=== PATIENT | female | born 1945 | race Caucasian/White ===

== ENCOUNTER 2020-09-14 13:17 | Inpatient (IN) | payer MEDICARE, MEDICAID ==
[~2020-09-14] VITALS: Ht 152.4 cm; Wt 53.2 kg
[~2020-09-14 13:17] MED LIST: COREG; LASIX
[2020-09-14] MEDS ORDERED: SODIUM CHLORIDE 0.9% 1,000 ML IV ONE (13:30)
[2020-09-14 14:17] LABS: HEMATOCRIT. 34.9 % (36.0-48.0); HEMOGLOBIN. 11.3 g/dL (12.0-16.0); MEAN CORPUSCULAR VOLUME 77.6 fL (81.0-99.0); MEAN PLATELET VOLUME 8.8 fl (7.4-10.4); PLATELET 173 x1000/uL (130-400); RED CELL DISTRIBUTION WIDTH 25.6 % (11.6-14.6)
[2020-09-14 14:26] LABS: INR 1.1; PROTHROMBIN TIME 11.3 sec (9.6-11.0)
[2020-09-14 14:31] LABS: CHLORIDE 104 mEq/L (98-107)
[2020-09-14] MEDS ORDERED: NOREPINEPHRINE 8MG/250ML PMX 250 ML IV STA (14:43)
[2020-09-14] MEDS ORDERED: VANCOMYCIN 1 G PREMIX 200 ML IV NR (14:45)
[2020-09-14] MEDS ORDERED: LIDOCAINE HCL 1% 20ML VIAL (Pyxis) INJ ONE (14:45)
[2020-09-14 15:09] LABS: PLATELET ESTIMATE NORMAL
[2020-09-14 15:10] LABS: CLARITY URINE CLEAR (CLEAR); COLOR URINE YELLOW (YELLOW); KETONES URINE TRACE (NEGATIVE); LEUKOCYTE ESTERASE URINE 1+ (NEGATIVE); NITRITE URINE NEGATIVE (NEGATIVE); OCCULT BLOOD URINE NEGATIVE (NEGATIVE); PROTEIN URINE TRACE (NEGATIVE); SPECIFIC GRAVITY URINE 1.022 (1.005-1.030)
[2020-09-14] MEDS ORDERED: NOREPINEPHRINE 8 MG in DEXTROSE 5% WATER 250 ML IV PRN (15:15)
[2020-09-14] MEDS ORDERED: PIPERACILLIN/TAZ 3.375G PREMIX 50 ML IV NR (15:30)
[2020-09-14] MEDS ORDERED: ACETAMINOPHEN 650MG SUPP PR ONE (16:00)
[2020-09-14] MEDS ORDERED: ASPIRIN 300MG SUPP PR ONE (16:00)
[2020-09-14] MEDS ORDERED: ONDANSETRON HCL 4MG/2ML INJ IV PRN (16:45)
[2020-09-14] MEDS ORDERED: PIPERACILLIN/TAZOBACTAM 3.375 G in DEXT 5% WATER 100 ML IV SCH (16:45)
[2020-09-14] MEDS: DEXT 5%/0.45% NACL 1000ML 1,000 ML IV SCH (18:37)
[2020-09-14] MEDS: MIDODRINE HCL 5MG TABLET PO SCH (19:04)
[2020-09-14] MEDS: ENOXAPARIN 40MG/0.4ML SYR SUBCUT SCH (22:00)
[2020-09-14] MEDS: PIPERACILLIN/TAZOBACTAM 3.375 G in DEXT 5% WATER 100 ML IV SCH (22:44)
[2020-09-15 06:50] LABS: HEMATOCRIT. 34.5 % (36.0-48.0); HEMOGLOBIN. 11.1 g/dL (12.0-16.0); MEAN CORPUSCULAR HEMOGLOBIN 24.7 pg (28.0-32.0); MEAN CORPUSCULAR VOLUME 76.9 fL (81.0-99.0); MEAN PLATELET VOLUME 8.6 fl (7.4-10.4); PLATELET 220 x1000/uL (130-400); RED BLOOD CELL COUNT 4.49 mill/uL (4.2-5.4); RED CELL DISTRIBUTION WIDTH 25.6 % (11.6-14.6)
[2020-09-15 06:52] LABS: CHLORIDE 108 mEq/L (98-107)
[2020-09-15] MEDS: PIPERACILLIN/TAZOBACTAM 3.375 G in DEXT 5% WATER 100 ML IV SCH ×4 (08:00→20:00)
[2020-09-15] MEDS: DEXT 5%/0.45% NACL 1000ML 1,000 ML IV SCH ×2 (08:30→22:24)
[2020-09-15] MEDS: VANCOMYCIN 750 MG PREMIX 150 ML IV SCH (09:36)
[2020-09-15] MEDS: MIDODRINE HCL 5MG TABLET PO SCH ×3 (09:37→22:23)
[2020-09-15] MEDS ORDERED: DEXTROSE 50% WATER 50ML SYRINGE IV PRN (10:00)
[2020-09-15 11:08] LABS: PLATELET ESTIMATE NORMAL
[2020-09-15] MEDS: BLOOD SUGAR DIAGNOSTIC STRIP TEST SCH ×3 (11:30→22:17)
[2020-09-15] MEDS: INSULIN LISPRO 100 UNITS/ML SUBCUT SCH ×3 (13:35→22:32)
[2020-09-15] MEDS: ENOXAPARIN 40MG/0.4ML SYR SUBCUT SCH (22:32)
[2020-09-16] MEDS: PIPERACILLIN/TAZOBACTAM 3.375 G in DEXT 5% WATER 100 ML IV SCH ×3 (02:20→14:55)
[2020-09-16] MEDS: VANCOMYCIN 750 MG PREMIX 150 ML IV SCH (03:13)
[2020-09-16] MEDS: INSULIN LISPRO 100 UNITS/ML SUBCUT SCH ×4 (07:00→17:50)
[2020-09-16] MEDS: BLOOD SUGAR DIAGNOSTIC STRIP TEST SCH ×4 (07:12→17:26)
[2020-09-16] MEDS: MIDODRINE HCL 5MG TABLET PO SCH ×3 (09:44→17:11)
[2020-09-16] MEDS: DEXT 5%/0.45% NACL 1000ML 1,000 ML IV SCH ×2 (10:00)
[2020-09-16 10:07] LABS: BASOPHILS % 0.6 % (0.0-2.0); EOSINOPHILS % 0.7 % (0.0-5.0); HEMATOCRIT. 31.4 % (36.0-48.0); HEMOGLOBIN. 10.2 g/dL (12.0-16.0); LYMPHOCYTES % 8.3 % (20.0-50.0); MEAN CORPUSCULAR HEMOGLOBIN 24.9 pg (28.0-32.0); MEAN PLATELET VOLUME 9.1 fl (7.4-10.4); MONOCYTES % 3.4 % (2.0-8.0); PLATELET 163 x1000/uL (130-400); RED BLOOD CELL COUNT 4.08 mill/uL (4.2-5.4); RED CELL DISTRIBUTION WIDTH 24.5 % (11.6-14.6)
[2020-09-16 10:29] LABS: CHLORIDE 108 mEq/L (98-107)
[2020-09-16] MEDS ORDERED: POTASSIUM CHLORIDE 20MEQ TABLET SR PO NR (11:00)
[2020-09-16] MEDS: VANCOMYCIN 1 G PREMIX 200 ML IV SCH (13:16)
[2020-09-16 23:04] VITALS: BP 110/69
[2020-09-17] VITALS (7 sets, daily range): BP systolic 110–151; BP diastolic 54–82
[2020-09-17] MEDS: PIPERACILLIN/TAZOBACTAM 3.375 G in DEXT 5% WATER 100 ML IV SCH ×4 (00:59→17:47)
[2020-09-17] MEDS: VANCOMYCIN 1 G PREMIX 200 ML IV SCH ×2 (03:06→14:41)
[2020-09-17] MEDS: DEXT 5%/0.45% NACL 1000ML 1,000 ML IV SCH ×2 (06:03→16:58)
[2020-09-17] MEDS: BLOOD SUGAR DIAGNOSTIC STRIP TEST SCH ×4 (07:20→21:56)
[2020-09-17 07:58] LABS: CHLORIDE 109 mEq/L (98-107)
[2020-09-17 08:00] LABS: BASOPHILS % 0.4 % (0.0-2.0); EOSINOPHILS % 0.8 % (0.0-5.0); HEMATOCRIT. 29.4 % (36.0-48.0); HEMOGLOBIN. 9.2 g/dL (12.0-16.0); LYMPHOCYTES % 10.5 % (20.0-50.0); MEAN CORPUSCULAR HEMOGLOBIN 24.3 pg (28.0-32.0); MEAN PLATELET VOLUME 9.2 fl (7.4-10.4); NEUTROPHILS % 81.3 % (40.0-76.0); PLATELET 191 x1000/uL (130-400); RED BLOOD CELL COUNT 3.77 mill/uL (4.2-5.4); RED CELL DISTRIBUTION WIDTH 24.5 % (11.6-14.6)
[2020-09-17] MEDS ORDERED: POTASSIUM CHLORIDE 20MEQ TABLET SR PO NR (08:15)
[2020-09-17] MEDS: MIDODRINE HCL 5MG TABLET PO SCH ×3 (09:00→17:00)
[2020-09-17] MEDS: INSULIN LISPRO 100 UNITS/ML SUBCUT SCH ×4 (09:47→21:57)
[2020-09-17] MEDS: ACETAMINOPHEN 325MG TABLET PO PRN (18:56)
[2020-09-17] MEDS: ENOXAPARIN 40MG/0.4ML SYR SUBCUT SCH (18:59)
[2020-09-17] MEDS: INSULIN GLARGINE UD 100 UNITS/ML SYR SUBCUT SCH (21:58)
[2020-09-17] MEDS: CEFEPIME 1,000 MG in DEXTROSE 5% WATER 50 ML IV SCH (23:01)
[2020-09-17] MEDS: METRONIDAZOLE 500 MG PREMIX 100 ML IV SCH (23:51)
[2020-09-18] VITALS: BP 127/64
[2020-09-18 04:00] VITALS: BP 145/86
[2020-09-18] MEDS: DEXT 5%/0.45% NACL 1000ML 1,000 ML IV SCH ×2 (06:13→12:19)
[2020-09-18] MEDS: METRONIDAZOLE 500 MG PREMIX 100 ML IV SCH ×2 (06:13→15:00)
[2020-09-18] MEDS: BLOOD SUGAR DIAGNOSTIC STRIP TEST SCH ×4 (06:20→20:29)
[2020-09-18 07:01] LABS: CHLORIDE 110 mEq/L (98-107)
[2020-09-18 08:00] VITALS: BP 140/77
[2020-09-18 08:04] LABS: BASOPHILS % 0.6 % (0.0-2.0); EOSINOPHILS % 0.8 % (0.0-5.0); LYMPHOCYTES % 12.4 % (20.0-50.0); MEAN CORPUSCULAR VOLUME 77.8 fL (81.0-99.0); MEAN PLATELET VOLUME 8.6 fl (7.4-10.4); MONOCYTES % 9.5 % (2.0-8.0); NEUTROPHILS % 76.7 % (40.0-76.0); PLATELET 197 x1000/uL (130-400); RED BLOOD CELL COUNT 3.59 mill/uL (4.2-5.4); RED CELL DISTRIBUTION WIDTH 24.3 % (11.6-14.6)
[2020-09-18] MEDS: INSULIN LISPRO 100 UNITS/ML SUBCUT SCH ×4 (08:52→21:00)
[2020-09-18] MEDS ORDERED: POTASSIUM CHLORIDE 20MEQ TABLET SR PO NR (10:00)
[2020-09-18] MEDS: CEFEPIME 1,000 MG in DEXTROSE 5% WATER 50 ML IV SCH ×2 (10:21→21:47)
[2020-09-18] MEDS: INSULIN GLARGINE UD 100 UNITS/ML SYR SUBCUT SCH ×2 (10:31→21:48)
[2020-09-18 12:00] VITALS: BP 124/73
[2020-09-18] MEDS ORDERED: FUROSEMIDE 20MG/2ML VIAL IVP NR (14:15)
[2020-09-18 16:00] VITALS: BP 139/73
[2020-09-18 20:00] VITALS: BP 119/82
[2020-09-18] MEDS ORDERED: ENOXAPARIN 40MG/0.4ML SYR SUBCUT SCH (21:00)
[2020-09-19] VITALS (30 sets, daily range): BP systolic 85–152; BP diastolic 58–93
[2020-09-19] MEDS: METRONIDAZOLE 500 MG PREMIX 100 ML IV SCH ×3 (01:27→15:02)
[2020-09-19] MEDS: BLOOD SUGAR DIAGNOSTIC STRIP TEST SCH ×4 (06:26→21:00)
[2020-09-19] MEDS: INSULIN LISPRO 100 UNITS/ML SUBCUT SCH ×4 (08:49→21:00)
[2020-09-19] MEDS: CEFEPIME 1,000 MG in DEXTROSE 5% WATER 50 ML IV SCH ×2 (10:16→22:05)
[2020-09-19] MEDS: INSULIN GLARGINE UD 100 UNITS/ML SYR SUBCUT SCH ×2 (10:20→22:44)
[2020-09-19] MEDS ORDERED: DIGOXIN 500MCG/2ML AMP IV NR (11:45)
[2020-09-19] MEDS ORDERED: MIDODRINE HCL 5MG TABLET PO SCH ×2 (13:00)
[2020-09-19] MEDS: VANCOMYCIN 750 MG PREMIX 150 ML IV SCH (16:17)
[2020-09-19] MEDS: ACETAMINOPHEN 325MG TABLET PO PRN (16:41)
[2020-09-19] MEDS ORDERED: AMIODARONE HCL 200 MG TABLET PO SCH (18:00)
[2020-09-19 18:01] LABS: BASOPHILS % 0.7 % (0.0-2.0); EOSINOPHILS % 0.5 % (0.0-5.0); HEMATOCRIT. 30.6 % (36.0-48.0); LYMPHOCYTES % 13.1 % (20.0-50.0); MEAN CORPUSCULAR HEMOGLOBIN 25.2 pg (28.0-32.0); MEAN CORPUSCULAR VOLUME 77.3 fL (81.0-99.0); MEAN PLATELET VOLUME 8.3 fl (7.4-10.4); NEUTROPHILS % 73.7 % (40.0-76.0); PLATELET 252 x1000/uL (130-400); RED BLOOD CELL COUNT 3.95 mill/uL (4.2-5.4); RED CELL DISTRIBUTION WIDTH 23.5 % (11.6-14.6)
[2020-09-19 18:15] LABS: CHLORIDE 110 mEq/L (98-107)
[2020-09-19] MEDS ORDERED: CARVEDILOL 6.25 MG TABLET PO SCH (21:00)
[2020-09-19] MEDS: ENOXAPARIN 60MG/0.6ML SYR SUBCUT SCH (22:19)
[2020-09-19 23:52] LABS: CHLORIDE 111 mEq/L (98-107)
[2020-09-19 23:53] LABS: BASOPHILS % 0.7 % (0.0-2.0); EOSINOPHILS % 1.3 % (0.0-5.0); HEMATOCRIT. 34.5 % (36.0-48.0); HEMOGLOBIN. 10.9 g/dL (12.0-16.0); LYMPHOCYTES % 13.5 % (20.0-50.0); MEAN CORPUSCULAR HEMOGLOBIN 24.8 pg (28.0-32.0); MEAN CORPUSCULAR VOLUME 78.6 fL (81.0-99.0); MEAN PLATELET VOLUME 8.5 fl (7.4-10.4); MONOCYTES % 9.9 % (2.0-8.0); NEUTROPHILS % 74.6 % (40.0-76.0); PLATELET 267 x1000/uL (130-400); RED BLOOD CELL COUNT 4.39 mill/uL (4.2-5.4); RED CELL DISTRIBUTION WIDTH 23.9 % (11.6-14.6)
[2020-09-20] VITALS (9 sets, daily range): BP systolic 127–144; BP diastolic 33–89
[2020-09-20 00:01] LABS: T4 FREE 1.74 ng/dL (0.76-1.46)
[2020-09-20] MEDS: METRONIDAZOLE 500 MG PREMIX 100 ML IV SCH ×4 (00:01→23:39)
[2020-09-20] MEDS: BLOOD SUGAR DIAGNOSTIC STRIP TEST SCH ×4 (06:29→20:53)
[2020-09-20] MEDS ORDERED: POTASSIUM CHLORIDE 20MEQ TABLET SR PO NR (06:30)
[2020-09-20] MEDS: CEFEPIME 1,000 MG in DEXTROSE 5% WATER 50 ML IV SCH ×2 (09:04→20:53)
[2020-09-20] MEDS: CARVEDILOL 6.25 MG TABLET PO SCH ×2 (09:05→20:52)
[2020-09-20] MEDS: ENOXAPARIN 60MG/0.6ML SYR SUBCUT SCH ×2 (09:05→20:00)
[2020-09-20] MEDS: AMIODARONE HCL 200 MG TABLET PO SCH ×2 (09:05→20:52)
[2020-09-20] MEDS: INSULIN LISPRO 100 UNITS/ML SUBCUT SCH ×4 (09:06→20:52)
[2020-09-20] MEDS: VANCOMYCIN 750 MG PREMIX 150 ML IV SCH (09:06)
[2020-09-20] MEDS: LOSARTAN POTASSIUM 50 MG TABLET PO SCH (09:08)
[2020-09-20 10:56] LABS: BASOPHILS % 0.7 % (0.0-2.0); EOSINOPHILS % 1.2 % (0.0-5.0); HEMATOCRIT. 31.2 % (36.0-48.0); MEAN CORPUSCULAR HEMOGLOBIN 25.3 pg (28.0-32.0); MEAN CORPUSCULAR VOLUME 78.8 fL (81.0-99.0); MEAN PLATELET VOLUME 9.1 fl (7.4-10.4); MONOCYTES % 12.6 % (2.0-8.0); NEUTROPHILS % 70.5 % (40.0-76.0); PLATELET 280 x1000/uL (130-400); RED BLOOD CELL COUNT 3.95 mill/uL (4.2-5.4); RED CELL DISTRIBUTION WIDTH 23.7 % (11.6-14.6)
[2020-09-20 10:57] LABS: CHLORIDE 112 mEq/L (98-107)
[2020-09-20] MEDS: INSULIN GLARGINE UD 100 UNITS/ML SYR SUBCUT SCH ×2 (11:14→21:42)
[2020-09-20] MEDS: ACETAMINOPHEN 325MG TABLET PO PRN (17:53)
[2020-09-20] MEDS ORDERED: CLOTRIMAZOLE 1% SOLUTION 10ML TOP ONE (23:30)
[2020-09-21] VITALS (10 sets, daily range): BP systolic 115–156; BP diastolic 57–89
[2020-09-21] MEDS: VANCOMYCIN 750 MG PREMIX 150 ML IV SCH ×2 (03:18→22:55)
[2020-09-21] MEDS: BLOOD SUGAR DIAGNOSTIC STRIP TEST SCH ×4 (05:44→21:12)
[2020-09-21] MEDS: INSULIN LISPRO 100 UNITS/ML SUBCUT SCH ×4 (05:48→21:00)
[2020-09-21] MEDS: AMIODARONE HCL 200 MG TABLET PO SCH ×2 (08:31→21:11)
[2020-09-21] MEDS: ENOXAPARIN 60MG/0.6ML SYR SUBCUT SCH (08:32)
[2020-09-21] MEDS: CARVEDILOL 6.25 MG TABLET PO SCH ×2 (08:32→21:11)
[2020-09-21] MEDS: LOSARTAN POTASSIUM 50 MG TABLET PO SCH (08:32)
[2020-09-21] MEDS: METRONIDAZOLE 500 MG PREMIX 100 ML IV SCH ×2 (08:32→16:34)
[2020-09-21] MEDS ORDERED: CARVEDILOL 6.25 MG TABLET PO SCH (09:00)
[2020-09-21] MEDS ORDERED: ENOXAPARIN 60MG/0.6ML SYR SUBCUT SCH (09:00)
[2020-09-21 10:24] LABS: HEMATOCRIT 30.6 % (36.0-48.0); HEMOGLOBIN 9.9 g/dL (12.0-16.0); MEAN CORPUSCULAR HEMOGLOBIN 25.2 pg (28.0-32.0); MEAN CORPUSCULAR VOLUME 77.7 fL (81.0-99.0); PLATELET 349 x1000/uL (130-400); RED BLOOD CELL COUNT 3.94 mill/uL (4.2-5.4); RED CELL DISTRIBUTION WIDTH 23.7 % (11.6-14.6)
[2020-09-21 10:36] LABS: CHLORIDE 111 mEq/L (98-107)
[2020-09-21] MEDS: INSULIN GLARGINE UD 100 UNITS/ML SYR SUBCUT SCH ×2 (11:54→22:00)
[2020-09-21] MEDS: ASPIRIN 81MG TABLET PO SCH (13:19)
[2020-09-21] MEDS: ACETAMINOPHEN 325MG TABLET PO PRN (13:19)
[2020-09-21] MEDS: CEFEPIME 1,000 MG in DEXTROSE 5% WATER 50 ML IV SCH ×2 (13:19→21:12)
[2020-09-21] MEDS: ENOXAPARIN 40MG/0.4ML SYR SUBCUT SCH (21:12)
[2020-09-22] VITALS (12 sets, daily range): BP systolic 109–154; BP diastolic 25–97
[2020-09-22] MEDS: METRONIDAZOLE 500 MG PREMIX 100 ML IV SCH ×3 (00:09→18:49)
[2020-09-22] MEDS: BLOOD SUGAR DIAGNOSTIC STRIP TEST SCH ×4 (06:50→21:00)
[2020-09-22] MEDS: INSULIN LISPRO 100 UNITS/ML SUBCUT SCH ×4 (07:20→21:00)
[2020-09-22 07:38] LABS: BASOPHILS % 0.2 % (0.0-2.0); EOSINOPHILS % 0.2 % (0.0-5.0); HEMATOCRIT. 29.8 % (36.0-48.0); HEMOGLOBIN. 9.6 g/dL (12.0-16.0); LYMPHOCYTES % 12.7 % (20.0-50.0); MEAN CORPUSCULAR HEMOGLOBIN 25.3 pg (28.0-32.0); MEAN CORPUSCULAR VOLUME 78.5 fL (81.0-99.0); MEAN PLATELET VOLUME 8.5 fl (7.4-10.4); MONOCYTES % 3.2 % (2.0-8.0); NEUTROPHILS % 83.7 % (40.0-76.0); PLATELET 325 x1000/uL (130-400); RED CELL DISTRIBUTION WIDTH 23.5 % (11.6-14.6)
[2020-09-22 07:52] LABS: CHLORIDE 111 mEq/L (98-107)
[2020-09-22] MEDS ORDERED: POTASSIUM CHLORIDE 20MEQ TABLET SR PO SCH (08:15)
[2020-09-22] MEDS: LOSARTAN POTASSIUM 50 MG TABLET PO SCH (08:42)
[2020-09-22] MEDS: CARVEDILOL 6.25 MG TABLET PO SCH ×2 (08:43→21:55)
[2020-09-22] MEDS: ASPIRIN 81MG TABLET PO SCH (08:43)
[2020-09-22] MEDS: AMIODARONE HCL 200 MG TABLET PO SCH ×2 (08:43→21:55)
[2020-09-22] MEDS: CLOTRIMAZOLE 1% SOLUTION 10ML TOP SCH (09:00)
[2020-09-22] MEDS: CEFEPIME 1,000 MG in DEXTROSE 5% WATER 50 ML IV SCH (10:08)
[2020-09-22] MEDS: VANCOMYCIN 750 MG PREMIX 150 ML IV SCH (18:49)
[2020-09-22] MEDS: ENOXAPARIN 40MG/0.4ML SYR SUBCUT SCH (21:55)
[2020-09-22] MEDS: ACETAMINOPHEN 325MG TABLET PO PRN (21:55)
[2020-09-23] VITALS (8 sets, daily range): BP systolic 92–157; BP diastolic 50–80
[2020-09-23] MEDS: BLOOD SUGAR DIAGNOSTIC STRIP TEST SCH (06:56)
[2020-09-23] MEDS: INSULIN LISPRO 100 UNITS/ML SUBCUT SCH (07:20)
[2020-09-23] MEDS: CLOTRIMAZOLE 1% SOLUTION 10ML TOP SCH (09:00)
[2020-09-23] MEDS: ASPIRIN 81MG TABLET PO SCH (09:13)
[2020-09-23] MEDS: LOSARTAN POTASSIUM 50 MG TABLET PO SCH (09:14)
[2020-09-23] MEDS: CARVEDILOL 6.25 MG TABLET PO SCH (09:14)
[2020-09-23] MEDS: AMIODARONE HCL 200 MG TABLET PO SCH (09:14)
[2020-09-23] MEDS: VANCOMYCIN 750 MG PREMIX 150 ML IV SCH (09:14)
== END 2020-09-23 13:26 | disposition home or self-care (01) | DRG 871 ==
LOC: ER 13:17 → EDBEDREQ 14:59 → MICUSO 23:36 → 6EST 09-16 17:18 → 3WST 09-19 10:55
PROVIDERS: ADMIT Internal Medicine; ATTEND Internal Medicine
PROC: 05HY33Z Insertion of Infusion Device into Upper Vein, Percutaneous Approach (ICD-10-PCS; principal; 2020-09-14)
PROC: B54MZZA Ultrasonography of Right Upper Extremity Veins, Guidance (ICD-10-PCS; 2020-09-14)
DX: A41.9 Sepsis, unspecified organism (principal); R65.21 Severe sepsis with septic shock; E43 Unspecified severe protein-calorie malnutrition; I50.23 Acute on chronic systolic (congestive) heart failure; E87.1 Hypo-osmolality and hyponatremia; L03.317 Cellulitis of buttock; N39.0 Urinary tract infection, site not specified; I42.9 Cardiomyopathy, unspecified; I47.1 Supraventricular tachycardia; J98.11 Atelectasis; K57.32 Diverticulitis of large intestine without perforation or abscess without bleeding; N20.0 Calculus of kidney; K57.30 Diverticulosis of large intestine without perforation or abscess without bleeding; Z20.828 Contact with and (suspected) exposure to other viral communicable diseases; B36.9 Superficial mycosis, unspecified; I48.0 Paroxysmal atrial fibrillation; B96.1 Klebsiella pneumoniae [K. pneumoniae] as the cause of diseases classified elsewhere; E11.9 Type 2 diabetes mellitus without complications; I44.7 Left bundle-branch block, unspecified; Z68.22 Body mass index [BMI] 22.0-22.9, adult; Z88.8 Allergy status to other drugs, medicaments and biological substances; I11.0 Hypertensive heart disease with heart failure
CPT/HCPCS: 36415; 71045; 74176; 76937; 80048; 80053; 80202; 81003; 82962; 83605; 83735; 83880; 84145; 84439; 84443; 84484; 85025; 85027; 87077; 87186; 87426; 93005; 93306; 96365; 97162; 99291; A6261; C1725; J0692; J1160; J1650; J1815; J1940; J2543; J3370; J3490; J7030; J7060